=== PATIENT | male | born 1950 | race Caucasian/White ===

== ENCOUNTER 2025-05-01 05:50 | Inpatient (IN) | payer OTHER ==
[~2025-05-01] VITALS: Ht 177.8 cm; Wt 92.2 kg
[2025-05-01 06:10] LABS: pH Blood Venous 7.32 (7.34-7.37)
[2025-05-01] MEDS ORDERED: Ipratropium/Albuterol SulF 2.5-0.5MG/3 ML Amp INH ONE (06:15)
[2025-05-01 06:20] LABS: BASOPHILS ABSOLUTE AUTO 0.08 K/mm3 (0.00-0.23); BASOPHILS PERCENT AUTO 1 % (0-2); EOSINOPHILS ABSOLUTE AUTO 0.48 K/mm3 (0.00-0.68); EOSINOPHILS PERCENT AUTO 3 % (0-6); Hematocrit 51.2 % (37.0-53.0); Hemoglobin 17.6 g/dL (13.5-17.5); IMMATURE GRAN ABSOLUTE AUTO 0.07 K/mm3 (0.00-0.10); IMMATURE GRAN PERCENT AUTO 1 % (0-1); LYMPHOCYTES ABSOLUTE AUTO 2.54 K/mm3 (0.84-5.20); LYMPHOCYTES PERCENT AUTO 17 % (21-46); MONOCYTES ABSOLUTE AUTO 1.41 K/mm3 (0.16-1.47); MONOCYTES PERCENT AUTO 9 % (4-13); Mean Corpuscular HGB Conc 34.4 g/dL (31.5-36.5); Mean Corpuscular Volume 98 fL (80-100); NEUTROPHILS ABSOLUTE AUTO 10.64 K/mm3 (1.96-9.15); NEUTROPHILS PERCENT AUTO 70 % (41-73); NRBC ABSOLUTE 0.00 K/mm3 (0.00-0.02); NRBC Auto 0.0 /100 WBC (0.0-0.2); Platelet Count 228 K/mm3 (150-400); RDW Coefficient Variation 12.7 % (11.7-14.2); RDW Standard Deviation 45.6 fL (35.1-46.3)
[2025-05-01 06:39] LABS: D-Dimer, Quantitative 1.27 mg/L FEU (0.00-0.52); Prothrombin Time Results 11.9 Sec (9.7-11.5)
[2025-05-01 06:48] LABS: Alanine Aminotransfer (ALT/SGP 44.0 U/L (12-78); Albumin, Blood 3.8 g/dL (3.4-5.0); Albumin/Globulin Ratio 1.0 (0.8-1.8); Anion Gap 7.0 mmol/L (3-11); Aspartate Aminotrans (AST/SGOT 42.0 U/L (12-37); Bilirubin, Total 0.9 mg/dL (0.1-1.0); Blood Urea Nitrogen 11.0 mg/dL (8-24); CO2, Blood 28.0 mmol/L (21-32); Calcium, Blood 9.0 mg/dL (8.5-10.1); Chloride, Blood 108.0 mmol/L (98-108); Creatinine, Blood 0.76 mg/dL (0.60-1.20); Globulin, Blood 3.8 g/dL (2.2-4.0); Glucose, Blood 160.0 mg/dL (70-99); Magnesium, Blood 2.0 mg/dL (1.6-2.4); Phosphorus, Blood 3.0 mg/dL (2.5-4.9); Potassium, Blood 3.5 mmol/L (3.5-5.5); Sodium, Blood 139.0 mmol/L (136-145); Total Protein, Blood 7.6 g/dL (6.4-8.2)
[2025-05-01] MEDS ORDERED: CefTRIAXone Sodium 1,000 MG in NS 100 ML IV ONE (06:55)
[2025-05-01] MEDS ORDERED: Ipratropium/Albuterol SulF 2.5-0.5MG/3 ML Amp INH SCH (08:55)
[2025-05-01] MEDS ORDERED: Albuterol 2.5 MG/3 ML VIAL INH PRN (09:00)
[2025-05-01] MEDS ORDERED: Enoxaparin 40 MG/0.4 ML SYR SC SCH (09:00)
[2025-05-01 09:27] LABS: Source, Urine Clean Catch
[2025-05-01 09:33] LABS: Bilirubin, Urine Neg (Neg); Glucose Qualitative, Urine Neg (Neg); Ketones, Urine 1+ (Neg); Leukocyte Esterase, Urine Neg (Neg); Protein, Urine 2+ (Neg); Specific Gravity, Urine 1.015 (1.003-1.022); Urobilinogen, Urine NORM (Normal)
[2025-05-01 09:35] LABS: Color, Urine Yellow (P-Yellow)
[2025-05-01 09:50] LABS: Red Blood Cells, Urine 0-2 /hpf (0-2); White Blood Cells, Urine 0-2 /hpf (0-5)
[2025-05-01] MEDS ORDERED: ALLO100 PO (10:06)
[2025-05-01] MEDS ORDERED: LOSA25 PO (10:06)
[2025-05-01 20:23] VITALS: BP 177/88
--- NOTE | 2025-05-01 22:41 | NUR ---
ASSUMPTION OF CARE REPORT RECIEVED FROM LUNCHROOM ATTENDANT. PT ARRIVED TO PCU AROUND 1999 VIA [facility]. PT STOOD AND TRANSFERED TO PCU BED WITH SBA. HE IS A&O X4, CALM, COOPERATIVE TO CARE. SKIN INTACT, NO BREAKDOWN NOTED. HR IN THE 80'S-90'S, SR. HE DENIES ANY CP/PRESSURE, NUMB/TINGLING, SBP ELEVATED IN THE 170'S, PER PT HIS NEW PCP JUST RECENTLY CHANGED HIS BP MEDICATIONS AND IT HAS BEEN AROUND THAT. HE IS ON 2L VIA [place]. HE HAS SOME SOB WITH EXERTION. L/S WITH CRACKLES IN THE BASES. HE HAS NON-PITTING BLE EDEMA. PT RESTING IN BED AT THIS TIME. CALL LIGHT IN REACH. WILL MONITOR PT.
[2025-05-01 23:34] VITALS: BP 159/78
[2025-05-02] VITALS (14 sets, daily range): BP systolic 137–186; BP diastolic 67–111
[2025-05-02 04:42] LABS: Hematocrit 44.3 % (37.0-53.0); Hemoglobin 15.1 g/dL (13.5-17.5); Mean Corpuscular HGB Conc 34.1 g/dL (31.5-36.5); Mean Corpuscular Volume 97 fL (80-100); NRBC ABSOLUTE 0.00 K/mm3 (0.00-0.02); NRBC Auto 0.0 /100 WBC (0.0-0.2); Platelet Count 190 K/mm3 (150-400); RDW Coefficient Variation 12.7 % (11.7-14.2); RDW Standard Deviation 45.9 fL (35.1-46.3)
[2025-05-02 06:27] LABS: Alanine Aminotransfer (ALT/SGP 29.0 U/L (12-78); Albumin, Blood 3.0 g/dL (3.4-5.0); Albumin/Globulin Ratio 0.9 (0.8-1.8); Anion Gap 7.0 mmol/L (3-11); Aspartate Aminotrans (AST/SGOT 26.0 U/L (12-37); Bilirubin, Total 0.9 mg/dL (0.1-1.0); Blood Urea Nitrogen 13.0 mg/dL (8-24); CO2, Blood 30.0 mmol/L (21-32); Calcium, Blood 8.8 mg/dL (8.5-10.1); Chloride, Blood 107.0 mmol/L (98-108); Creatinine, Blood 0.81 mg/dL (0.60-1.20); Globulin, Blood 3.2 g/dL (2.2-4.0); Glucose, Blood 115.0 mg/dL (70-99); Potassium, Blood 3.4 mmol/L (3.5-5.5); Sodium, Blood 141.0 mmol/L (136-145); Total Protein, Blood 6.2 g/dL (6.4-8.2)
--- NOTE | 2025-05-02 06:35 | NUR ---
SHIFT SUMMARY PT A&O X4, CALM, COOPERATIVE TO CARE. HR IN THE 80'S, SR, HE DENIES ANY CP/PRESSURE, NUMB/TINGLING. SBP STABLE, O2 >92% ON 2L VIA NC. PT HAS SOME SOB WITH EXERTION. HE IS DIURESING WELL. NO ACUTE CHANGES T/O NIGHT. PT RESTING IN BED AT THIS TIME. CALL LIGHT IN REACH. WILL MONITOR PT AND REPORT TO ONCOMING RN.
[2025-05-02] MEDS ORDERED: Potassium Chloride 10 Meq Tablet SA PO SCH (08:00)
--- NOTE | 2025-05-02 09:47 | NUR ---
ASSUMPTION OF CARE: PATIENT IS ALERT AND ORIENTED X 4, NO LONGER HAVE ANY CHEST DISCOMFORT. SATURATING >94% ON 2L. PLAN FOR ANGIOGRAM TODAY. PROVIER INCREASED DIURETICS, AT BEDSIDE. ABLE TO MAKE NEEDS KNOWN AND CALLS APPROPRITATELY. NO ACUTE CONCERNS FROM THIS RN.
[2025-05-02] MEDS ORDERED: Heparin Sodium 1000 Units/ML 10ML MDV ONE ×3 (11:01→12:56)
[2025-05-02] MEDS ORDERED: NS 2,000 ML IV ONE (11:01)
[2025-05-02] MEDS ORDERED: Nitroglycerin 2 MG/20 ML BTL ONE (11:02)
[2025-05-02] MEDS ORDERED: Verapamil HCL 2.5 MG/ML 2ML Injection ONE (11:02)
[2025-05-02] MEDS ORDERED: NS 250 ML IV ONE (11:04)
[2025-05-02] MEDS ORDERED: FentaNYL Citrate 50 MCG/ML 2 ML Injection ONE ×2 (11:40→12:17)
[2025-05-02] MEDS ORDERED: Midazolam HCl 1MG / ML 2ML Vial ONE ×2 (11:41→12:18)
[2025-05-02] MEDS ORDERED: NS 1,000 ML IV ONE (12:56)
[2025-05-02 15:57] LABS: CHOL/HDL RATIO 2.0; Cholesterol 132 mg/dL (50-200); HDL Cholesterol 66 mg/dL (>39); LDL/HDL RATIO 0.8; Low Density Lipoprotein Chol 55 mg/dL (0-110); Triglycerides 53 mg/dL (30-160); Very Low Density Lipoprot Chol 10 mg/dL (6-32)
--- NOTE | 2025-05-02 19:50 | NUR ---
EOS: PATIENT HAS REMAINED TO BE A/O X 4 ABLE TO MAKE NEEDS KNOWN, RIGHT HEART CATH AND ANGIO, 2 SITES RIGHT GROIN AND RIGHT RADIAL. TR BAND INITIALLY WITH 14CC, RECEIVED 4 VERSED AND 200 OF FENTANYL, CATH ON RIGHT RADIAL UNSUCCESSFUL DUE TO ANATOMY. PATIENT IS RECOVERING WELL. DENIES CHEST PAIN /PRESSURE OR SOB AT REST. PATIENT HAS CURRENTLY BEEN ON 2 HOURS OF STRICT BEDREST. GROIN SITE WITH ANGIOSEAL. SOFT NONTENDER, CHG IN PLACE ON RIGHT AC RIGHT GROIN, AND TR BAND ON RADIAL SITE. STILL ON 2L VIA NC. NEW MED ORDERS FROM PROVIDER. KVNG DIURESING PATIENT WELL AT 825 OUTPUT FOR THIS RN AFTER ADMISSION, NO LONGER NPO. TOLERATING SIPS OF WATER WHILE MILDLY FLAT. PATIENT IS PLEASANT, COOPERATIVE, AND CALLS APPROPRIATELY. TR DEFLATED WITH ONLY VERY MINIMAL BRUISING, TOLERATED STAND PIVOT TO RECLINER. NO ACUTE CONCERN FROM THIS RN OR PATIENT AT THIS TIME. PLAN OF CARE CONTINUES
[2025-05-03 04:37] LABS: Hematocrit 45.1 % (37.0-53.0); Hemoglobin 15.4 g/dL (13.5-17.5); Mean Corpuscular HGB Conc 34.1 g/dL (31.5-36.5); Mean Corpuscular Volume 98 fL (80-100); NRBC ABSOLUTE 0.00 K/mm3 (0.00-0.02); NRBC Auto 0.0 /100 WBC (0.0-0.2); Platelet Count 172 K/mm3 (150-400); RDW Coefficient Variation 12.6 % (11.7-14.2); RDW Standard Deviation 45.3 fL (35.1-46.3)
[2025-05-03 05:08] LABS: Albumin, Blood 2.9 g/dL (3.4-5.0); Anion Gap 9 mmol/L (3-11); Blood Urea Nitrogen 14 mg/dL (8-24); CO2, Blood 29 mmol/L (21-32); Calcium, Blood 8.8 mg/dL (8.5-10.1); Chloride, Blood 106 mmol/L (98-108); Creatinine, Blood 0.79 mg/dL (0.60-1.20); Glucose, Blood 100 mg/dL (70-99); Magnesium, Blood 1.9 mg/dL (1.6-2.4); Phosphorus, Blood 3.3 mg/dL (2.5-4.9); Potassium, Blood 3.6 mmol/L (3.5-5.5); Sodium, Blood 140 mmol/L (136-145)
[2025-05-03 05:43] VITALS: BP 160/68
--- NOTE | 2025-05-03 06:03 | NUR ---
SHIFT SUMMARY PT A&O X4, CALM, COOERATIVE TO CARE. HR IN THE 70'S, SR. HE DENIES ANY CP/PRESSURE, NUMB/TINGLING, SBP STABLE. O2 >92% ON 2L VIA NC, PT ON 2L VIA NC. HE HAS SOME SOB WITH EXERTION. PT USING URINAL AT BEDSIDE. DIURESING WELL. PT WITH RIGHT AC SITE, RIGHT GROIN, AND RIGHT RADIAL. RIGHT RADIAL SITE WITH TEGADERM IN PLACE, NO BLEEDING PRESENT. NO ACUTE CHANGES T/O NIGHT. PT RESTING IN BED AT THIS TIME. CALL LIGHT IN REACH. WILL MONITOR PT AND REPORT TO ONCOMING RN.
[2025-05-03 07:29] VITALS: BP 161/80
[2025-05-03 11:16] VITALS: BP 159/60
[2025-05-03] MEDS ORDERED: ASPI81CH PO (11:34)
[2025-05-03] MEDS ORDERED: ATOR40TA PO (11:35)
[2025-05-03] MEDS ORDERED: METO25ER PO (11:36)
[2025-05-03] MEDS ORDERED: JARDIANCE10 MG PO (11:36)
[2025-05-03] MEDS ORDERED: BUME1 PO (11:36)
[2025-05-03] MEDS ORDERED: K-Dur10 MEQ PO (11:37)
--- NOTE | 2025-05-03 12:05 | NUR ---
DISCHARGE NOTE: PT AND EDUCATED AT BEDSIDE REGARDING DISCHARGE INSTRUCTIONS AND HOME MED REC. PT AND STATE UNDERSTANDING OF INSTRUCTIONS AND DENY QUESTIONS. ALL PIV AND TELE REMOVED PRIOR TO DISCHARGE. MEDS FAXED TO [facility] PER PT REQUEST. R RADIAL AND AC SITE UNCHANGED FROM START OF SHIFT.
== END 2025-05-03 12:40 | disposition home or self-care (01) | DRG 280 ==
LOC: ER 05:50 → ERHOLD 08:54 → PCU 20:06
PROVIDERS: Emergency Medicine; Student in an Organized Health Care Education/Training Program; ADMIT Internal Medicine
PROC: B2101ZZ Fluoroscopy of Single Coronary Artery using Low Osmolar Contrast (ICD-10-PCS; principal; 2025-05-02)
PROC: 4A023N8 Measurement of Cardiac Sampling and Pressure, Bilateral, Percutaneous Approach (ICD-10-PCS; 2025-05-02)
DX: I11.0 Hypertensive heart disease with heart failure (principal); I50.23 Acute on chronic systolic (congestive) heart failure; I21.A1 Myocardial infarction type 2; J96.01 Acute respiratory failure with hypoxia; J96.02 Acute respiratory failure with hypercapnia; R74.01 Elevation of levels of liver transaminase levels; E87.6 Hypokalemia; M10.9 Gout, unspecified; I08.0 Rheumatic disorders of both mitral and aortic valves; I49.3 Ventricular premature depolarization; Z79.899 Other long term (current) drug therapy; I27.22 Pulmonary hypertension due to left heart disease; I25.10 Atherosclerotic heart disease of native coronary artery without angina pectoris
CPT/HCPCS: 36415; 71045; 71260; 76937; 80053; 80061; 80069; 81001; 82803; 83036; 83605; 83735; 83880; 84100; 84145; 84443; 84484; 85025; 85027; 85379; 85610; 85730; 87040; 93005; 93010; 93306; 93460; 93571; 94640; 94660; 94664; 94760; 94762; 96374; 99152; 99153; 99291-25; A9270; C1760; C1769; C1887; C1894; J0696; J1644; J1650; J1938; J2250; J3010; J7030; J7050; Q9967